=== PATIENT | male | born 1950 | race Caucasian/White ===

== ENCOUNTER 2017-09-22 11:13 | Emergency (ER) | payer OTHER ==
[2017-09-22] MEDS ORDERED: NS 500 ML IV ONE (13:46)
--- NOTE | 2017-09-22 13:53 | CPEKG ---
Heart Rate: 54 RR Interval: 1111 QRSD Interval: 76 QT Interval: 460 QTC Interval: 436 QRS Jansen: 74 T Wave Jansen: 78 EKG Severity - ABNORMAL ECG - EKG Impression: ATRIAL FLUTTER, A-RATE 326 Electronically Signed By: Lauren Corea 22-Sep-2017 20:34:49
--- NOTE | 2017-09-22 13:59 | EDPHY ---
HPI/HX/ROS/PE/MDM Narrative: CHIEF COMPLAINT: Upper right chest pain with inspiration HISTORY OF PRESENT ILLNESS: The patient is an anticoagulated (Plavix) 67 y/o male with a history of 7 cardiac stents and cholesterol related clotting disorder complaining of upper right chest pain [facility]. He initially started on Zithromax but did not experience. He saw a nurse practitioner at his PCP's office in [place] who saw fluid in the right lower lobe on his chest X-ray. He was prescribed doxycycline three times daily for ten days and Medrol. He went back two weeks ago for a follow-up and his chest X-ray was normal and was asymptomatic. Saturday, four days ago, he was boarding a plane to [place] when he started to notice a cough again. Upon landing his cough was worse. He called his PCP who prescribed another course of doxycycline. He is on the third day in the course and has not experience improvement. He has associated pain in his right upper chest. The pain is described as stabbing and is worse in certain positions and with deep inspiration. He denies fever, shortness of breath, nausea, vomiting, sore throat, pain in his legs, other chest pain, or any other associated symptoms. He denies history of atrial fibrillation, premature ventricular contract or blood clots. The flight was two hours and he has been active since. He takes diclofenac daily No fever, chills, shortness of breath, palpitations, vomiting, diarrhea, urinary complaints, headache, lightheadedness. REVIEW OF SYSTEMS: Aside from elements discussed in the HPI, a comprehensive 10-point review of systems was reviewed and is negative. PAST MEDICAL HISTORY: 7 cardiac stents, cholesterol related clotting disorder SOCIAL HISTORY: From [place], visiting family, retired VITAL SIGNS: Reviewed by me GENERAL: Well-developed, well-nourished, resting comfortably in no respiratory distress. HEENT: Atraumatic. Eyes: No icterus, no injection. Mouth: moist mucous membranes. No erythema or lesions. Neck: supple with no adenopathy. LUNGS: Lungs sounds diminished overall with ? pleural rub on the right lung. No wheezes, rhonchi or rales. CARDIAC:. Frequent premature beats. Irregular. No rubs, murmurs or gallops. ABDOMEN: Soft, nontender, nondistended, bowel sounds normal. BACK: No CVA tenderness. EXTREMITIES: Trace edema bilaterally. No trauma. Range of motion is normal throughout. NEURO: Alert and oriented, grossly nonfocal. SKIN: Warm and dry, no rash. PSYCHIATRIC: Normal mentation, no agitation. ED Course: X-ray: Chest x-ray was obtained. I viewed the images myself on the PACS system. My interpretation of the images is: normal chest. The radiologist interpretation is normal. I discussed the x-ray findings with the patient. CT: Chest CT was obtained. I viewed the images myself on the PACS system. My interpretation of the images is: negative for PE. The radiologist interpretation is negative for PE. I discussed the x-ray findings with the patient. The patient presents with right lateral chest pain upon inspiration. He had a URI following Thanksgiving which was treated with doxycycline and Medrol. Patient's symptoms improved. However he developed recurrent discomfort in the right chest wall several days ago. His physician from [place] has placed him back on doxycycline. On exam his lungs are diminished with pleural rub on the right. 1430: Patient remains in atrial flutter with bradycardia. 1520: Dr. Rivers, radiology, informs me CT shows no evidence of pulmonary embolism. I will discuss the results of the work up with the patient along with the possibility of admission. Patient prefers not to be admitted if possible. The patient's chest discomfort appears to be pleuritic in nature. I doubt a acute coronary syndrome event. His troponin is negative his EKG is not ischemic. However, he does have what sounds like a newly diagnosed/newly noted atrial fibrillation atrial flutter. 1630: I consulted with Dr. Nava, hospitalist, and discussed inpatient admission versus management as an outpatient. Suggestion was made that the patient could be started on Eliquis with a plan for further evaluation as soon as he returns home to [place]. Patient will need to understand that he must return immediately if he becomes lightheaded, has worsened chest pain, difficulty breathing, or any other cardiac symptoms. I discussed this course of action with the patient. 1645: I spoke with Dr. Haji, cardiology, regarding our course of action. We specifically discussed a change from Plavix to Eliquis. Family is concerned regarding a change from an anti-platelet therapy to a direct thrombin inhibitor. Recommendation from Cardiology was as lungs patient continue his daily 81 mg of aspirin a switched to Eliquis would be appropriate given his now diagnosis of atrial fibrillation atrial flutter. Family understands that he has been offered admission to the hospital. They would prefer strongly to seek further care with their snag grinder in [place]. 1st dose of Eliquis was provided in the emergency department and a prescription was provided. Please see the discharge instructions. MDM: After history and physical examination, the differential for chest pain was considered, including but not limited to, myocardial ischemia, acute coronary syndrome, pulmonary embolus, chest wall pain, pleural inflammation and pulmonary infectious causes. - Data Points Laboratory Results: Laboratory Results 09/22/17 14:00 09/22/17 14:00 Medications Given: Discontinued Medications Hydrocodone Bitart/Acetaminophen ([place] 5/325mg Prepack#6) 1 btl TAKEHOME EDNOW ONE Stop: 09/22/17 16:16 Last Admin: 09/22/17 16:34 Dose: 1 btl Apixaban (Eliquis) 5 mg PO EDNOW ONE Stop: 09/22/17 16:12 Last Admin: 09/22/17 16:35 Dose: 5 mg Sodium Chloride (Ns) 500 mls @ 1,000 mls/hr IV EDNOW ONE PRN Reason: Protocol Stop: 09/22/17 14:15 Last Admin: 09/22/17 14:28 Dose: 500 mls General Time Seen by Provider: 09/22/17 13:26 Initial Vital Signs: Initial Vital Signs Temperature (C) 36.5 C 09/22/17 11:15 Heart Rate 56 L 09/22/17 11:15 Respiratory Rate 16 09/22/17 11:15 Blood Pressure 177/72 H 09/22/17 11:15 O2 Sat (%) 95 09/22/17 11:15 O2 Delivery Mode Room Air Allergies/Adverse Reactions: Penicillins Allergy (Unknown, Verified 09/22/17 11:17) as child Home Medications: Medication Instructions Recorded Doxycycline 09/22/17 Apixaban [Eliquis] 5 mg PO BID #30 tab 09/22/17 Aspirin EC [Aspirin EC 81 mg (*)] 81 mg PO DAILY 09/22/17 Clopidogrel Bisulfate [Plavix (*)] 75 mg PO DAILY 09/22/17 Diclofenac Sodium 75 mg PO 09/22/17 Hydrocodone/APAP 5/325 [[place] 0.5 - 1 each PO Q6 PRN #8 tab 09/22/17 5/325 (*)] Metoprolol Succinate Xr [Toprol Xl 50 mg PO DAILY 09/22/17 50 mg (*)] Tamsulosin HCl [Flomax 0.4 MG (*)] 0.4 mg PO 09/22/17 amLODIPine BESYLATE/BENAZEPRIL 1 each PO DAILY 09/22/17 [Lotrel 5/10 mg Cap (*)] guaiFENesin [Mucinex 600 MG (*)] 600 mg PO BID 09/22/17 Departure - Departure Disposition: Home, Routine, Self-Care Clinical Impression: Atrial fibrillation and flutter, Chest discomfort Condition: Good Instructions: Hydrocodone/Acetaminophen (By mouth), Apixaban (By mouth), Atrial Flutter (ED), A-fib (Atrial Fibrillation) (ED) Additional Instructions: You may begin starting the Eliquis 5 mg 2 times a day this evening. Stop taking Plavix (clopidogrel). Take your diclofenac with caution; consider taking maalox or mylanta along with the diclofenac to prevent stomach upset. For your chest discomfort, you have been given a prescription for norco ( tylenol with hydrocodone). Use this with caution. Dose should be 2.5 mg (half tablet) every 4-6 hours. Please note that [place] has Tylenol in it. Do not take [place] at the same time that you are taking regular Tylenol. Follow up with her primary care physician when he return to [place]. Referrals: MARCELA BUTCHER [Other] - As per Instructions Prescriptions: Apixaban [Eliquis] 5 mg PO BID #30 tab Hydrocodone/APAP 5/325 [[place] 5/325 (*)] 0.5 - 1 each PO Q6 PRN #8 tab PRN Reason: pain Report Scribed for: Lauren Corea Report Scribed by: Marcie Vick Date of Report: 09/22/17 Time of Report: 13:59 Physician Review and Approval Statement: Portions of this note were transcribed by a medical information specialist. I personally performed a history, physical exam, medical decision making, and confirmed accuracy of information the transcribed note.
[2017-09-22 14:09] LABS: PLATELET COUNT 131 10^3/uL (150-400)
[2017-09-22] MEDS ORDERED: IOPAMIDOL (ISOVUE 370) 100 ML BTL IV ONE (14:29)
[2017-09-22 14:31] VITALS: TEMP 98.2
[2017-09-22 16:01] VITALS: BP 172/89; PULSE 64; RESP 20; O2SAT 95
[2017-09-22] MEDS ORDERED: APIXABAN 5 MG TAB PO ONE (16:11)
[2017-09-22] MEDS ORDERED: HYDROCOD/APAP 5/325 PREPACK#6 BTL TAKEHOME ONE (16:15)
== END 2017-09-22 16:40 | disposition home or self-care (01) ==
DX: I48.92 Unspecified atrial flutter (principal); E86.9 Volume depletion, unspecified; Z95.5 Presence of coronary angioplasty implant and graft; Z79.82 Long term (current) use of aspirin
CPT/HCPCS: Q9967